=== PATIENT | female | born 1950 | race African-American/Black ===

== ENCOUNTER 2020-02-16 08:19 | Emergency (ER) | payer BC, MEDICARE ==
[2020-02-16] MEDS ORDERED: Morphine 4 MG/ML VIAL ONE (09:03)
[2020-02-16 09:26] LABS: Hemoglobin 12.4 g/dL (12.0-16.0); INR-International Normal Ratio 0.9; Prothrombin Time 12.3 sec (12.0-14.7); Red Blood Cell (RBC) Count 4.66 mill/uL (4.20-5.40); White Blood Cell (WBC) Count 6.6 thou/uL (4.8-10.8)
[2020-02-16] MEDS ORDERED: Sodium Chloride 0.9% 1,000 ML ONE (09:26)
[2020-02-16] MEDS ORDERED: Ondansetron PF 4 MG/2 ML Vial ONE (09:26)
[2020-02-16] MEDS ORDERED: Famotidine In NaCl 20 mg/50 ml Premix Bag ONE (09:26)
[2020-02-16] MEDS ORDERED: methylPREDNISolone Sod Succ/PF 125 MG/2 ML VIAL ONE (09:26)
[2020-02-16] MEDS ORDERED: diphenhydrAMINE 50 MG/ML VIAL ONE (09:26)
[2020-02-16 09:27] LABS: #Eosinphils 0.1 thou/uL (0.0-0.7); #Lymphocytes 1.4 thou/uL (1.20-3.40); #Monocytes 0.5 thou/uL (0.11-0.59); #Neutrophils 4.5 thou/uL (1.40-6.50); %Basophils 0.8 % (0.0-1.0); %Eosinophils 2.2 % (0.0-10.0); %Lymphocytes 21.2 % (21.0-51.0); %Monocytes 7.9 % (0.0-10.0); %Neutrophils 67.9 % (42.0-75.0); Mean Corpuscular HGB CONC 30.4 g/dL (32.0-36.0); Mean Corpuscular Hemoglobin 26.6 pg (27.0-31.0); Mean Corpuscular Volume 87.5 fL (78.0-98.0); Mean Platelet Volume 8.4 fL (7.4-10.4); Platelet Count 275 thou/uL (130-400); RBC Distribution Width 12.3 % (11.5-14.5)
[2020-02-16 09:28] LABS: #Basophils 0.5 thou/uL (0.0-0.2)
--- NOTE | 2020-02-16 09:55 | CT ---
EXAM: CT brain without contrast HISTORY: Head trauma after fall COMPARISON: None TECHNIQUE: Multiple contiguous axial images were obtained and a CT of the brain without contrast. FINDINGS: There are scattered hypodensities in the subcortical and periventricular white matter consi stent with small vessel ischemic disease. There is no evidence of hydrocephalus, intracranial hemorrhage, or extra-axial fluid collection. There is soft tissue swelling in the right forehead. The underlying calvarium is unremarkable. The vi sualized paranasal sinuses and mastoid air cells are well aerated. IMPRESSION: No evidence of acute intracranial abnormality
[2020-02-16 09:56] LABS: ALT (SGPT) 12 U/L (8-55); AST (SGOT) 18 U/L (5-34); Albumin 4.5 g/dL (3.4-4.8); Alkaline Phosphatase 77 U/L (40-110); Anion Gap 16 mmol/L (10-20); BUN (Urea Nitrogen) 11 mg/dL (9.8-20.1); Bilirubin, Total 0.9 mg/dL (0.2-1.2); CK (CPK) 268 U/L (29-168); Calc. Creatinine Clearance 0 mL/min (70-130); Calcium 8.6 mg/dL (7.8-10.44); Carbon Dioxide 22 mmol/L (23-31); Chloride 108 mmol/L (98-107); Estimated GFR-MDRD Greater than 90; Globulin 3.6 g/dL (2.4-3.5); Glucose 96 mg/dL (83-110); Lipase 39 U/L (8-78); Potassium 3.5 mmol/L (3.5-5.1); Protein, Total 8.1 g/dL (6.0-8.3); Sodium 142 mmol/L (136-145)
--- NOTE | 2020-02-16 10:00 | CT ---
EXAM: CT of the cervical spine without contrast HISTORY: Fall with head trauma and neck pain COMPARISON: None TECHNIQUE: Multiple contiguous axial images were obtained in a CT of the cervical spine without contr ast. Sagittal and coronal reformats were performed. FINDINGS: The vertebral bodies and intervertebral discs demonstrate normal height and alignment witho ut fracture or subluxation. No degenerative changes are present. No prevertebral soft tissue swelling is seen. The posterior facets are well aligned. Normal alignment of the skull base with the cervical spine is seen. The lung apices and cervical soft tissues are unremarkable. IMPRESSION: No evidence of acute osseous abnormality of the cervical spine.
--- NOTE | 2020-02-16 10:15 | RAD ---
EXAM: 3 views of the right shoulder HISTORY: Shoulder pain COMPARISON: None FINDINGS: There is no evidence of acute fracture or dislocation. No degenerative changes are present. No soft tissue swelling is seen. The visualized thorax is unremarkable. IMPRESSION: No evidence of acute osseous abnormality.
[2020-02-16] MEDS ORDERED: Adacel (T-DAP) 0.5 ML SYRINGE ONE (10:30)
--- NOTE | 2020-02-16 10:40 | CT ---
EXAM: CT of the chest with IV contrast CT of the abdomen and pelvis with IV contrast HISTORY: Trauma, fall. COMPARISON: None FINDINGS: CT CHEST: Mediastinum: Heart is normal in size without focal cardiac abnormality. No hilar or mediastinal lymph adenopathy. No mediastinal hemorrhage. Calcified subcarinal lymph node is seen. Vessels: Vascular calcifications are seen in the thoracic aorta. There are no findings to suggest an aortic injury. Lungs: Clear without consolidation. Pleural space: No pneumothorax or pleural effusion. Osseous structures: No evidence of acute fracture. Chest wall: Within normal limits. CT ABDOMEN/PELVIS: Liver: Within normal limits. Gallbladder: Prominent fold but otherwise within normal limits. Spleen: Within normal limits. Pancreas: Within normal limits. Adrenal glands: Within normal limits. Kidneys: Subcentimeter too small to characterize hypodense lesion superior pole right kidney with 1.3 cm fluid attenuation cyst superior pole left kidney. Urinary bladder: Decompressed and not well evaluated. Vessels: Abdominal aorta is normal in caliber without evidence of an aortic injury. Bowel: Evidence of colonic diverticulosis. Loops of small bowel are normal in caliber. Appendix is vi sualized and normal in caliber. Pelvis: No focal mass or abnormality. Reproductive organs: Evidence of hysterectomy. Peritoneum: No free air or free fluid. Retroperitoneum: No lymphadenopathy. Osseous structures: No acute fracture identified. . Degenerative changes are seen in the spine, but the vertebral body heights are within normal limits, and no fracture or subluxation is seen IMPRESSION: 1. No acute findings in the chest, abdomen, or pelvis.
[2020-02-16] MEDS ORDERED: Iopamidol 370 76% 100 ML VIAL ONE (12:02)
== END 2020-02-16 11:22 | disposition home or self-care (01) ==
LOC: MADERS 08:19
DX: S00.83XA Contusion of other part of head, initial encounter (principal); S80.812A Abrasion, left lower leg, initial encounter; I10 Essential (primary) hypertension; E78.00 Pure hypercholesterolemia, unspecified; E78.5 Hyperlipidemia, unspecified; Z79.899 Other long term (current) drug therapy; W01.10XA Fall on same level from slipping, tripping and stumbling with subsequent striking against unspecified object, initial encounter
CPT/HCPCS: 70450; 71260; 72125; 74177; 80053; 82550; 83690; 85025; 85610; 85730; 86850; 86900; 86901; 90471; 90715; 96361; 96374; 96375; J1200; J2270; J2405; J2930; J7050; Q9967

== ENCOUNTER 2022-04-26 15:06 | Emergency (ER) | payer BC, MEDICARE ==
[2022-04-26] MEDS ORDERED: Fluorescein Opthalmic Strip ONE (15:25)
[2022-04-26] MEDS ORDERED: Tetracaine 0.5% PF 4 ML BOT ONE (15:25)
== END 2022-04-26 16:16 | disposition home or self-care (01) ==
LOC: MADERS 15:06
DX: H10.9 Unspecified conjunctivitis (principal); E78.00 Pure hypercholesterolemia, unspecified; I10 Essential (primary) hypertension
CPT/HCPCS: 99283